=== PATIENT | male | born 1980 | race Caucasian/White ===

== ENCOUNTER 2018-11-04 10:52 | Emergency (ER) | payer MEDICAID ==
[~2018-11-04] VITALS: Ht 193 cm; Wt 84.1 kg
[2018-11-04 11:08] VITALS: BP 145/90; Ht 193 cm; Wt 84.1 kg
[2018-11-04] MEDS ORDERED: PREDNISONE10 MG PO (14:02)
[2018-11-04] MEDS ORDERED: AMOXICILLIN875 MG PO (14:02)
== END 2018-11-04 14:35 | disposition home or self-care (01) ==
LOC: D.ER 10:52
DX: J02.9 Acute pharyngitis, unspecified (principal)